=== PATIENT | female | born 1965 | race Caucasian/White ===

== ENCOUNTER 2021-01-17 08:11 | Outpatient (CLI) | payer MEDICAID ==
[~2021-01-17 08:11] MED LIST: REGADENOSON 0.4 MG/5 ML SYRINGE ONE
== END 2021-01-17 23:59 | disposition home or self-care (01) ==
LOC: CFH 08:11
PROVIDERS: ATTEND Physician Assistant
DX: R94.31 Abnormal electrocardiogram [ECG] [EKG] (principal); I10 Essential (primary) hypertension
CPT/HCPCS: 78452; 93017; A9502; J2785